=== PATIENT | female | born 1975 | race African-American/Black ===

== ENCOUNTER 2017-06-14 23:14 | Emergency (ER) | payer BC, OTHER ==
[2017-06-14 23:37] VITALS: BP 113/78; PULSE 65; TEMP 98.1; BMI 26.4
--- NOTE | 2017-06-15 00:53 | PDOC ---
History of Present Illness - General History Source: Patient - History of Present Illness Initial Comments: 06/15/17 01:06 The patient is a 42 year old female, with no significant past medical history of spine and sternum fractures (s/p fall on 04/22/17 in [place]), who presents to the emergency department with back pain and pain to her sternal region. She reportedly fell off of a kandi on 04/22/17 in [place], came to .. and went to [facility] where she was found to have 7 fractures in her back and a fractured sternum as per patient. She also reports tension-like headaches since her fall. She states she ran out dilaudid at home and reportedly tried other OTC medications for pain without resolution of pain. She reports difficulty ambulating and sleeping secondary to her pain. The patient denies chest pain, shortness of breath, headache and dizziness. The patient denies fever, chills, nausea, vomit, diarrhea, constipation or incontinence. The patient denies dysuria, frequency, urgency and hematuria. Allergies: NKDA <Rosalie Lipscomb - Last Filed: 06/15/17 04:58> - General History Source: Patient <Chemo Vázquez - Last Filed: 06/15/17 05:10> - General Chief Complaint: Back Pain Stated Complaint: CHEST PAIN Time Seen by Provider: 06/15/17 00:53 Past History <Rosalie Lipscomb - Last Filed: 06/15/17 04:58> - Suicide/Smoking/Psychosocial Hx Smoking History: Never smoked <Chemo Vázquez - Last Filed: 06/15/17 05:10> - Past Medical History Allergies/Adverse Reactions: Allergies Allergy/AdvReac Type Severity Reaction Status Date / Time No Known Allergies Allergy Verified 06/14/17 23:32 Home Medications: Ambulatory Orders HYDROmorphone [Dilaudid -] 2 mg PO Q6H #20 tablet MDD 8 06/15/17 Review of Systems - Review of Systems Able to Perform ROS?: Yes Comments:: 06/15/17 01:06 CONSTITUTIONAL: Absent: fever, chills, diaphoresis, generalized weakness, malaise, loss of appetite HEENT: Absent: rhinorrhea, nasal congestion, throat pain, throat swelling, difficulty swallowing, mouth swelling, ear pain, eye pain, visual Changes CARDIOVASCULAR: Absent: chest pain, syncope, palpitations, irregular heart rate, lightheadedness , peripheral edema RESPIRATORY: Absent: cough, shortness of breath, dyspnea with exertion, orthopnea, wheezing, stridor, hemoptysis GASTROINTESTINAL: Absent: abdominal pain, abdominal distension, nausea, vomiting, diarrhea, constipation, melena, hematochezia GENITOURINARY: Absent: dysuria, frequency, urgency, hesitancy, hematuria, flank pain, genital pain MUSCULOSKELETAL: (+) back pain and sternum pain. Absent: arthralgia, joint swelling SKIN: Absent: rash, itching, pallor HEMATOLOGIC/IMMUNOLOGIC: Absent: easy bleeding, easy bruising, lymphadenopathy, frequent infections ENDOCRINE: Absent: unexplained weight gain, unexplained weight loss, heat intolerance, cold intolerance NEUROLOGIC: Absent: headache, focal weakness or paresthesias, dizziness, unsteady gait, seizure, mental status changes, bladder or bowel incontinence PSYCHIATRIC: Absent: anxiety, depression, suicidal or homicidal ideation, hallucinations. <Rosalie Lipscomb - Last Filed: 06/15/17 04:58> *Physical Exam - Vital Signs Last Vital Signs Temp Pulse Resp BP Pulse Ox 98.1 F 65 16 113/78 100 06/14/17 23:33 06/14/17 23:33 06/14/17 23:33 06/14/17 23:33 06/14/17 23:33 - Physical Exam Comments: 06/15/17 01:06 GENERAL: Well developed, well nourished. Awake and alert. No acute distress. HEENT: Normocephalic, atraumatic. PERRLA, EOMI. No conjunctival pallor. Sclera are non- icteric. Moist mucous membranes. Oropharynx is clear. NECK: Supple. Full ROM. No JVD. Carotid pulses 2+ and symmetric, without bruits. No thyromegaly. No lymphadenopathy. CARDIOVASCULAR: Regular rate and rhythm. No murmurs, rubs, or gallops. Distal pulses are 2+ and symmetric. PULMONARY: No evidence of respiratory distress. Lungs clear to auscultation bilaterally. No wheezing, rales or rhonchi. ABDOMINAL: Soft. Non-tender. Non-distended. No rebound or guarding. No organomegaly. Normoactive bowel sounds. MUSCULOSKELETAL Normal range of motion at all joints. No bony deformities or tenderness. No CVA tenderness. EXTREMITIES: No cyanosis. No clubbing. No edema. No calf tenderness. SKIN: Warm and dry. Normal capillary refill. No rashes. No jaundice. NEUROLOGICAL: (+) not willing to get up to properly examine gait. Alert, awake, appropriate. Cranial nerves 2-12 intact. Normoreflexic in the upper and lower extremities. Normal speech. Toes are down-going bilaterally. PSYCHIATRIC: Cooperative. Good eye contact. Appropriate mood and affect. <Rosalie Lipscomb - Last Filed: 06/15/17 04:58> - Vital Signs Last Vital Signs Temp Pulse Resp BP Pulse Ox 98.1 F 65 16 113/78 100 06/14/17 23:33 06/14/17 23:33 06/14/17 23:33 06/14/17 23:33 06/14/17 23:33 <Chemo Vázquez - Last Filed: 06/15/17 05:10> ED Treatment Course - RADIOLOGY Radiograph Interpretation: EXAM: CT CHEST WITHOUT CONTRAST 9 mm left thyroid nodule, correlate with ultrasound. No thoracic aortic dissection or aneurysm. No pneumothorax, hemothorax or lung contusion. No pericardial effusion or mediastinal hematoma. Small anterior mediastinal soft tissue, possibly thymic. Minimal coronary artery calcification. Subacute fracture mid sternum. Acute to subacute compression fractures T11 and L1 and chronic compression fractures T6 and T9 as previously described. Two small hepatic cysts. Bernie Leija M.D. 06/15/2017 04:54 EST <Rosalie Lipscomb - Last Filed: 06/15/17 04:58> *DC/Admit/Observation/Transfer - Attestations Scribe Attestion: 06/15/17 01:06 Documentation prepared by Rosalie Lipscomb, acting as medical laboratory specialist for Chemo Vázquez DO. <Rosalie Lipscomb - Last Filed: 06/15/17 04:58> - Discharge Dispostion Admit: No <Chemo Vázquez - Last Filed: 06/15/17 05:10> Diagnosis at time of Disposition: Compression fracture of body of thoracic vertebra Chronic back pain Qualifiers: Back pain location: thoracic back pain Back pain laterality: midline Qualified Code(s): M54.6 - Pain in thoracic spine; G89.29 - Other chronic pain; G89.29 - Other chronic pain - Discharge Dispostion Disposition: HOME Condition at time of disposition: Stable - Referrals Referrals: Harpreet Neal MD [Staff Physician] - Ricco Holt MD [Staff Physician] - - Patient Instructions Printed Discharge Instructions: Managing Chronic Low Back Pain, Vertebral Compression Fracture
[2017-06-15] MEDS ORDERED: HYDROmorphone HCL CARPU-JECT 2 MG/1 ML DISP.SYRIN IM ONE (01:08)
[2017-06-15] MEDS ORDERED: HYDROmorphone HCL CARPU-JECT 1 MG/1 ML DISP.SYRIN ONE (01:18)
--- NOTE | 2017-06-15 14:11 | EKG ---
Test Reason : Blood Pressure : / mmHG Vent. Rate : 071 BPM Atrial Rate : 071 BPM P-R Int : 156 ms QRS Dur : 084 ms QT Int : 390 ms P-R-T Axes : 051 015 045 degrees QTc Int : 423 ms POOR DATA QUALITY, INTERPRETATION MAY BE ADVERSELY AFFECTED NORMAL SINUS RHYTHM WITH SINUS ARRHYTHMIA NORMAL ECG NO PREVIOUS ECGS AVAILABLE Confirmed by SILVINA BARRY MD ([id number]) on 06/15/2017 2:11:16 PM Referred By: Confirmed By:SILVINA BARRY MD
== END 2017-06-15 05:30 | disposition home or self-care (01) ==
LOC: JER 23:14
PROC: 3E023NZ Introduction of Analgesics, Hypnotics, Sedatives into Muscle, Percutaneous Approach (ICD-10-PCS; principal; 2017-06-14)
DX: S22.078D Other fracture of T9-T10 vertebra, subsequent encounter for fracture with routine healing (principal); S22.058D Other fracture of T5-T6 vertebra, subsequent encounter for fracture with routine healing; S32.018D Other fracture of first lumbar vertebra, subsequent encounter for fracture with routine healing; W15.XXXD Fall from cliff, subsequent encounter
CPT/HCPCS: 36415; 71250-TC; 72128-TC; 72131-TC; 84703; 93005; 93010; 99282-25

== ENCOUNTER 2017-09-03 09:27 | Emergency (ER) | payer BC, OTHER ==
[2017-09-03 09:32] VITALS: BP 113/74; PULSE 81; TEMP 98.5; BMI 26.4
--- NOTE | 2017-09-03 09:40 | PDOC ---
History of Present Illness - General Chief Complaint: Pain Stated Complaint: R/O DVT POST OP PAIN Time Seen by Provider: 09/03/17 09:36 Past History - Past Medical History Allergies/Adverse Reactions: Allergies Allergy/AdvReac Type Severity Reaction Status Date / Time No Known Allergies Allergy Verified 09/03/17 09:28 Home Medications: Ambulatory Orders HYDROmorphone [Dilaudid -] 2 mg PO Q6H #20 tablet MDD 8 06/15/17 COPD: No Thyroid Disease: Yes Other medical history: BACK PAIN - Suicide/Smoking/Psychosocial Hx Smoking History: Never smoked Information on smoking cessation initiated: No Hx Alcohol Use: No Drug/Substance Use Hx: No Substance Use Type: None *Physical Exam - Vital Signs Last Vital Signs Temp Pulse Resp BP Pulse Ox 98.5 F 81 18 113/74 100 09/03/17 09:30 09/03/17 09:30 09/03/17 09:30 09/03/17 09:30 09/03/17 09:30
--- NOTE | 2017-09-03 09:46 | PDOC ---
History of Present Illness - General Chief Complaint: Pain Stated Complaint: R/O DVT POST OP PAIN History Source: Patient Exam Limitations: No Limitations - History of Present Illness Initial Comments: 09/03/17 10:18 42yo F with history of recent Kyphoplasty on (s/p fall from kandi in [place]) who presents with RLE pain starting last afternoon. Pt reports the pain starting at her near and being confined to above her ankle. Pt called her surgeon about the pain who stated if the pain was concerning, to come to the ER for further work-up. Pt denies any trauma to her leg. She denies f/chills, nausea/vomiting, SOB, CP/discomfort, palpitations, abdominal pain, shooting back pain, incontinence, sensory deficits in her lower extremities. Past History - Past Medical History Allergies/Adverse Reactions: Allergies Allergy/AdvReac Type Severity Reaction Status Date / Time No Known Allergies Allergy Verified 09/03/17 09:28 Home Medications: Ambulatory Orders HYDROmorphone [Dilaudid -] 2 mg PO TID MDD 8 09/03/17 Methocarbamol [Robaxin -] 750 mg PO BID 09/03/17 COPD: No Thyroid Disease: Yes Other medical history: BACK PAIN - Suicide/Smoking/Psychosocial Hx Smoking History: Never smoked Information on smoking cessation initiated: No Hx Alcohol Use: No Drug/Substance Use Hx: No Substance Use Type: None Review of Systems - Review of Systems Constitutional: No: Chills, Fever, Loss of Appetite, Malaise, Night Sweats HEENTM: No: Eye Pain, Blurred Vision, Nose Congestion, Throat Pain Respiratory: No: Cough, Shortness of Breath, SOB with Exertion, Wheezing Cardiac (ROS): No: Chest Pain, Edema, Lightheadedness, Palpitations, Syncope ABD/GI: No: Abdominal Distended, Constipated, Diarrhea, Nausea, Vomiting, Abdominal cramping : No: Dysuria, Frequency, Flank Pain, Incontinence Musculoskeletal: No: Joint Pain, Joint Swelling, Neck Pain Integumentary: No: Bruising, Lesions, Rash Neurological: No: Headache, Numbness, Tingling, Dizziness Hematologic/Lymphatic: No: Easy Bleeding, Easy Bruising *Physical Exam - Vital Signs Last Vital Signs Temp Pulse Resp BP Pulse Ox 98.5 F 81 18 113/74 100 09/03/17 09:30 09/03/17 09:30 09/03/17 09:30 09/03/17 09:30 09/03/17 09:30 - Physical Exam Comments: 09/03/17 11:33 GEN: NAD, awake, alert and oriented x3 HEENT: NC/AT, EOMI, RITA Neck: Soft, No JVD LUNGS: CTA bilaterally, no pain upon deep inspiration CARDIAC: RRR no murmurs appreciated ABD: Soft, NT/ND, no guarding, no rebound EXT: No edema noted bilaterally, no erythema noted, + Roro's sign on RLE, distal DP pulses intact and 2+, no looney's cyst appreciated, no popliteal bruits. ED Treatment Course - LABORATORY CBC & Chemistry Diagram: 09/03/17 10:00 09/03/17 10:00 Medical Decision Making - Medical Decision Making 09/03/17 11:08 No evidence of DVT on vascular study. CBC, CMP unremarkable *DC/Admit/Observation/Transfer Diagnosis at time of Disposition: Acute pain of right lower extremity - Discharge Dispostion Disposition: HOME Condition at time of disposition: Stable Admit: No - Referrals Referrals: Candie Cutler MD [Primary Care Provider] - - Patient Instructions Additional Instructions: You were seen here for your R lower leg pain most likely due to your positioning during the surgery Please continue to rest your leg, use ice as necessary (20 minutes on then 20 minutes off without ice directly in skin contact), and elevate. Your ultrasound here in the ED was negative for any deep vein blood clots --If your pain PERSISTS: you will need another leg ultrasound in 1-2 weeks Please continue your pain medication as directed from your surgery If you develop worsening pain, incontinence, sensory problems, or worsening strength problems please feel free to return to the ER. - Post Discharge Activity
--- NOTE | 2017-09-03 09:53 | PDOC ---
Attending Attestation - HPI HPI: 09/03/17 11:03 The patient is a 42 year old female with a significant PMH of recent kyphoplasty at L1 (last ) who presents to the emergency department with RLE pain beginning approximately yesterday afternoon. The patient states her RLE pain radiates from her knee down to her ankle. She denies recent trauma. She reports calling her surgeon who did her kyphoplasty to inquire whether her RLE pain was related to the surgery, who prompted her to visit the ED for evaluation. Allergies: NKA PCP: Dr. Cutler - Physicial Exam PE: 09/03/17 11:47 Vitals: Triage Vital signs reviewed General Appearance: no acute distress, well nourished well developed, Cardiac: Regular rate and rhythm, no murmurs, no rubs, no gallops, Lungs: Clear to auscultation bilateral, good air movement bilaterally, Abdomen: Soft, nondistended, normal bowel sounds, nontender to palpation Extremities: (+) Mild tenderness to RLE with flexion and extension. (+) Tenderness to right calf. No cyanosis, clubbing, or edema Skin: Warm and dry, no rashes or lesions, no petechiae Neuro: AOX3; Cranial Nerves 2-12 grossly intact, Strength intact to all extremities, Sensation intact to all extremities Psych: normal mood, normal affect <Rashaun Martinez - Last Filed: 09/03/17 11:47> - Resident Resident Name: Alexandr Chase - ED Attending Attestation I have performed the following: I have examined & evaluated the patient, The case was reviewed & discussed with the resident, I agree w/resident's findings & plan, Exceptions are as noted - Medical Decision Making 42 years old status post recent surgery presents to the ED with calf pain status post surgery We'll order ultrasound to rule out DVT Reevaluation: No evidence of DVT on ultrasound patient will follow up with her primary care providers return to ED for any severe worsening symptoms or she will return in 1-2 weeks if symptoms persist for repeat ultrasound Findings, need for follow-up, strict return instructions discussed with patient. <Mian Trotter - Last Filed: 09/03/17 16:29>
[2017-09-03 10:12] LABS: EOS % 1.5 % (0-4.5); HEMATOCRIT 38.5 % (32.4-45.2); HEMOGLOBIN 13.4 GM/dL (10.7-15.3); LYMPH % 27.2 % (8-40); MCH 32.4 pg (25.7-33.7); MCHC 34.8 g/dl (32.0-36.0); MEAN PLT VOLUME 7.3 fl (7.5-11.1); MONO % 11.9 % (3.8-10.2); NEUT % 58.4 % (42.8-82.8); PLATELET COUNT 313 K/MM3 (134-434); RBC 4.14 M/mm3 (3.60-5.2); RDW 13.1 % (11.6-15.6)
[2017-09-03 10:39] LABS: ALBUMIN 3.9 g/dl (3.4-5.0); ALK PHOS 72 U/L (45-117); ANION GAP 8 (8-16); BILIRUBIN,TOTAL 0.6 mg/dL (0.2-1.0); BLOOD UREA NITROGEN 7 mg/dL (7-18); CALCIUM 9.5 mg/dL (8.5-10.1); CHLORIDE 107 mmol/L (98-107); CO2 27 mmol/L (21-32); CREATININE 0.6 mg/dL (0.55-1.02); GLUCOSE,RANDOM 92 mg/dL (74-106); POTASSIUM 3.6 mmol/L (3.5-5.1); SGOT/AST 12 U/L (15-37); SGPT/ALT 16 U/L (12-78); SODIUM 142 mmol/L (136-145); TOT PROT 7.9 g/dl (6.4-8.2)
== END 2017-09-03 12:21 | disposition home or self-care (01) ==
LOC: JER 09:27
DX: M79.604 Pain in right leg (principal); E07.9 Disorder of thyroid, unspecified
CPT/HCPCS: 36415; 80053; 85025; 93970-TC; 99283-25

== ENCOUNTER 2023-12-29 12:54 | Day surgery (SDC) | payer BC, OTHER ==
[2023-12-29] MEDS: IRON SUCROSE INJECTION 200 MG in SODIUM CHLORIDE 100 ML IVPB ONE (13:27)
[2023-12-29 13:39] VITALS: RESP 18; TEMP 99
[2023-12-29 14:41] VITALS: BP 118/73; PULSE 80
== END 2023-12-29 14:42 | disposition home or self-care (01) ==
LOC: FINFUSION 12:54 → FM/S 12:58 → FINFUSION 14:42
PROVIDERS: ATTEND Family Medicine
PROC: 3E033GC Introduction of Other Therapeutic Substance into Peripheral Vein, Percutaneous Approach (ICD-10-PCS; principal; 2023-12-29)
PROC: 3E023GC Introduction of Other Therapeutic Substance into Muscle, Percutaneous Approach (ICD-10-PCS; 2023-12-29)
DX: D50.9 Iron deficiency anemia, unspecified (principal)
CPT/HCPCS: 96365; 96372; J1756

== ENCOUNTER 2024-01-12 13:39 | Day surgery (SDC) | payer BC, OTHER ==
[2024-01-12 14:08] VITALS: RESP 18; TEMP 99.7
[2024-01-12] MEDS: IRON SUCROSE INJECTION 200 MG in SODIUM CHLORIDE 100 ML IVPB ONE (14:16)
[2024-01-12 15:18] VITALS: BP 132/67; PULSE 62
== END 2024-01-12 15:18 | disposition home or self-care (01) ==
LOC: FINFUSION 13:39 → FM/S 13:40 → FINFUSION 15:18
PROVIDERS: ATTEND Family Medicine
PROC: 3E033GC Introduction of Other Therapeutic Substance into Peripheral Vein, Percutaneous Approach (ICD-10-PCS; principal; 2024-01-12)
DX: D50.9 Iron deficiency anemia, unspecified (principal)
CPT/HCPCS: 96365; J1756